=== PATIENT | female | born 1990 | race Caucasian/White ===

== ENCOUNTER → 2019-03-11 | Outpatient (CLI) | payer OTHER ==
--- NOTE | 2019-03-11 19:04 | REP ---
MR BRAIN WITHOUT CONTRAST: HISTORY: Migraine headaches. There are no areas of abnormal signal intensity in the brain. There is no intraparenchymal hemorrhage, infarct, mass or midline shift. The ventricular system is normal in appearance. There is no extracerebral collection. The visualized sinuses are clear. IMPRESSION: There is no intracranial lesion. Electronically Signed by Kareem Chapman MD 03/11/2019 07:05 P
== END ==
LOC: M RAD 15:45
PROVIDERS: ATTEND Family Medicine
DX: G43.709 Chronic migraine without aura, not intractable, without status migrainosus (principal)